=== PATIENT | female | born 1980 | race Caucasian/White ===

== ENCOUNTER 2018-10-21 10:12 | Emergency (ER) | payer OTHER, SELFPAY ==
[2018-10-21] MEDS ORDERED: IPRATROPIUM BROM 0.5MG/2.5ML ONE (11:15)
[2018-10-21] MEDS ORDERED: AZITHROMYCIN 250 MG TAB ONE (11:15)
[2018-10-21] MEDS ORDERED: predniSONE 20 MG TAB ONE (11:15)
[2018-10-21] MEDS ORDERED: LEVALBUTEROL 1.25 MG/3 ML NEB ONE (11:15)
--- NOTE | 2018-10-21 11:33 | ER ---
Nurse's Notes [facility] Name: Skye Cardenas Age: 37 yrs Sex: Female : 1980 Arrival Date: 10/21/2018 Time: 10:15 Bed 7 Private MD: Diagnosis: Dyspnea;Bronchitis, not specified as acute or chronic;Tobacco abuse counseling;Tobacco use Presentation: 10/21 10:33 Presenting complaint: Patient states: shortness of breath that began a month ago with a ss dry cough that has been getting worse. Pt reports that breathing has been worse over the past few days. Transition of care: patient was not received from another setting of care. Onset of symptoms was September 2018. Risk Assessment: Do you want to hurt yourself or someone else? Patient reports no desire to harm self or others. Initial Sepsis Screen: Does the patient meet any 2 criteria? No. Patient's initial sepsis screen is negative. Does the patient have a suspected source of infection? No. Patient's initial sepsis screen is negative. Care prior to arrival: None. 10:33 Method Of Arrival: Ambulatory ss 10:33 Acuity: MURRAY 3 ss Historical: - Allergies: 10:38 No Known Allergies; ss - Home Meds: 10:38 sertraline oral oral [Active]; Klonopin Oral [Active]; gabapentin oral oral [Active]; ss [place] Carbonate Oral [Active]; - PMHx: 10:38 Depression; Anxiety; ss - PSHx: 10:38 None; ss - Immunization history:: Adult Immunizations up to date. - Social history:: Smoking status: Patient uses tobacco products, smokes two packs cigarettes per day. - Ebola Screening: : Patient denies exposure to infectious person Patient denies travel to an Ebola-affected area in the 21 days before illness onset. Screenin:14 Abuse screen: Denies threats or abuse. Denies injuries from another. Nutritional aj1 screening: No deficits noted. Tuberculosis screening: No symptoms or risk factors identified. 12:16 Fall Risk None identified. aj1 Assessment: 11:14 General: Appears in no apparent distress. comfortable, Behavior is calm, cooperative, aj1 appropriate for age. Pain: Denies pain. Neuro: Level of Consciousness is awake, alert, obeys commands, Oriented to person, place, time, situation. Cardiovascular: Heart tones S1 S2 present Patient's skin is warm and dry. Rhythm is regular. Respiratory: Reports shortness of breath cough that is persistent Airway is patent Respiratory effort is even, unlabored, Respiratory pattern is regular, symmetrical, Breath sounds are clear bilaterally. GI: No signs and/or symptoms were reported involving the gastrointestinal system. : No signs and/or symptoms were reported regarding the genitourinary system. EENT: No signs and/or symptoms were reported regarding the EENT system. Derm: No signs and/or symptoms reported regarding the dermatologic system. Skin is pink, warm \T\ dry. normal. Musculoskeletal: No signs and/or symptoms reported regarding the musculoskeletal system. Circulation, motion, and sensation intact. 12:05 Reassessment: Patient appears in no apparent distress at this time. No changes from aj1 previously documented assessment. Patient and/or family updated on plan of care and expected duration. Pain level reassessed. Patient is alert, oriented x 3, equal unlabored respirations, skin warm/dry/pink. Vital Signs: 10:38 BP 117 / 92; Pulse 77; Resp 16; Temp 98.0(O); Pulse Ox 100% on R/A; Weight 65.77 kg; ss Height 5 ft. 6 in. (167.64 cm); Pain 4/10; 11:14 BP 114 / 85; Pulse 57; Resp 16; Pulse Ox 100% on Nebulizer Mask; aj1 12:05 BP 109 / 85; Pulse 62; Resp 18; Pulse Ox 100% on R/A; aj1 10:38 Body Mass Index 23.40 (65.77 kg, 167.64 cm) ED Course: 10:15 Patient arrived in ED. as 10:36 Pawan Garrido MD is Attending Physician. kayla 10:36 Triage completed. ss 10:38 Arm band placed on right wrist. ss 10:59 Maria De Jesus Bradlye, RN is Primary Nurse. ss 11:13 Primary Nurse role handed off by Maria De Jesus Bradley, ROYAL aj1 11:13 Genesis Thomas, ROYAL is Primary Nurse. aj1 11:14 Patient has correct armband on for positive identification. Bed in low position. Call aj1 light in reach. Side rails up X 1. 11:14 No provider procedures requiring assistance completed. aj1 11:40 X-ray completed. Portable x-ray completed in exam room. Patient tolerated procedure la2 well. 11:42 Chest Pa And Lat (2 Views) XRAY In Process Unspecified. EDMS 12:06 Patient did not have IV access during this emergency room visit. aj1 Administered Medications: 11:12 Drug: predniSONE 40 mg Route: PO; ss 12:16 Follow up: Response: No adverse reaction aj1 11:12 Drug: Xopenex 1.25 mg Route: Inhalation; ss 12:16 Follow up: Response: No adverse reaction aj1 11:12 Drug: AtroVENT Aerosol 0.5 mg Route: Inhalation; ss 12:16 Follow up: Response: No adverse reaction aj1 11:13 Drug: Zithromax 500 mg Route: PO; ss 12:16 Follow up: Response: No adverse reaction aj1 Outcome: 11:31 Discharge ordered by . kayla 12:15 Discharged to home ambulatory. aj1 12:15 Condition: good 12:15 Discharge instructions given to patient, Instructed on discharge instructions, follow up and referral plans. no drinking with medication, no driving heavy equipment, medication usage, Demonstrated understanding of instructions, follow-up care, medications, Prescriptions given X 4. 12:17 Patient left the ED. aj1 Signatures: Dispatcher [employer] EDGenesis Mccrary RN RN aj1 Pawan Garrido MD MD cha Martinez, Amelia as Smirch, Shelby, RN RN Jerod Fernandaswetha augustin
--- NOTE | 2018-10-21 11:33 | EDPHYS ---
Physician Documentation [facility] Name: Skye Cardenas Age: 37 yrs Sex: Female : 1980 Arrival Date: 10/21/2018 Time: 10:15 Bed 7 Private MD: Pawan Marshall HPI: 10/21 10:42 This 37 yrs old Female presents to ER via Ambulatory with complaints of kayla Shortness Of Breath. 10:42 The patient has shortness of breath at rest. Onset: The symptoms/episode began/occurred kayla 2 day(s) ago. Duration: The symptoms are chronic. The patient's shortness of breath has no apparent modifying factors. Associated signs and symptoms: The patient has no apparent associated signs or symptoms. Severity of symptoms: At their worst the symptoms were mild. The patient has not experienced similar symptoms in the past. Historical: - Allergies: 10:38 No Known Allergies; ss - Home Meds: 10:38 sertraline oral oral [Active]; Klonopin Oral [Active]; gabapentin oral oral [Active]; ss [place] Carbonate Oral [Active]; - PMHx: 10:38 Depression; Anxiety; ss - PSHx: 10:38 None; ss - Immunization history:: Adult Immunizations up to date. - Social history:: Smoking status: Patient uses tobacco products, smokes two packs cigarettes per day. - Ebola Screening: : Patient denies exposure to infectious person Patient denies travel to an Ebola-affected area in the 21 days before illness onset. ROS: 10:43 Constitutional: Negative for fever, chills, and weight loss, Eyes: Negative for injury, kayla pain, redness, and discharge, ENT: Negative for injury, pain, and discharge, Neck: Negative for injury, pain, and swelling, Cardiovascular: Negative for chest pain, palpitations, and edema, Abdomen/GI: Negative for abdominal pain, nausea, vomiting, diarrhea, and constipation, Back: Negative for injury and pain, : Negative for injury, bleeding, discharge, and swelling, MS/Extremity: Negative for injury and deformity, Skin: Negative for injury, rash, and discoloration, Neuro: Negative for headache, weakness, numbness, tingling, and seizure, Psych: Negative for depression, anxiety, suicide ideation, homicidal ideation, and hallucinations, Allergy/Immunology: Negative for hives, rash, and allergies, Endocrine: Negative for neck swelling, polydipsia, polyuria, polyphagia, and marked weight changes, Hematologic/Lymphatic: Negative for swollen nodes, abnormal bleeding, and unusual bruising. 10:43 Respiratory: Positive for cough, "sounds productive". Exam: 10:43 Constitutional: This is a well developed, well nourished patient who is awake, alert, kayla and in no acute distress. Head/Face: Normocephalic, atraumatic. Eyes: Pupils equal round and reactive to light, extra-ocular motions intact. Lids and lashes normal. Conjunctiva and sclera are non-icteric and not injected. Cornea within normal limits. Periorbital areas with no swelling, redness, or edema. ENT: Nares patent. No nasal discharge, no septal abnormalities noted. Tympanic membranes are normal and external auditory canals are clear. Oropharynx with no redness, swelling, or masses, exudates, or evidence of obstruction, uvula midline. Mucous membranes moist. Neck: Trachea midline, no thyromegaly or masses palpated, and no cervical lymphadenopathy. Supple, full range of motion without nuchal rigidity, or vertebral point tenderness. No Meningismus. Chest/axilla: Normal chest wall appearance and motion. Nontender with no deformity. No lesions are appreciated. Cardiovascular: Regular rate and rhythm with a normal S1 and S2. No gallops, murmurs, or rubs. Normal PMI, no JVD. No pulse deficits. Abdomen/GI: Soft, non-tender, with normal bowel sounds. No distension or tympany. No guarding or rebound. No evidence of tenderness throughout. Back: No spinal tenderness. No costovertebral tenderness. Full range of motion. Skin: Warm, dry with normal turgor. Normal color with no rashes, no lesions, and no evidence of cellulitis. MS/ Extremity: Pulses equal, no cyanosis. Neurovascular intact. Full, normal range of motion. Neuro: Awake and alert, GCS 15, oriented to person, place, time, and situation. Cranial nerves II-XII grossly intact. Motor strength 5/5 in all extremities. Sensory grossly intact. Cerebellar exam normal. Normal gait. Psych: Awake, alert, with orientation to person, place and time. Behavior, mood, and affect are within normal limits. 10:43 Respiratory: the patient does not display signs of respiratory distress, Respirations: normal, Breath sounds: rhonchi, that are mild, are scattered, Respiratory rate: 16 Vital Signs: 10:38 BP 117 / 92; Pulse 77; Resp 16; Temp 98.0(O); Pulse Ox 100% on R/A; Weight 65.77 kg; Height 5 ft. 6 in. (167.64 cm); Pain 4/10; 11:14 BP 114 / 85; Pulse 57; Resp 16; Pulse Ox 100% on Nebulizer Mask; aj1 12:05 BP 109 / 85; Pulse 62; Resp 18; Pulse Ox 100% on R/A; aj1 10:38 Body Mass Index 23.40 (65.77 kg, 167.64 cm) MDM: 10:36 Patient medically screened. [facility] 10:44 Data reviewed: vital signs, nurses notes, radiologic studies, plain films. [facility] 10/21 10:42 Order name: Chest Pa And Lat (2 Views) XRAY kayla Administered Medications: 11:12 Drug: predniSONE 40 mg Route: PO; ss 12:16 Follow up: Response: No adverse reaction aj 11:12 Drug: Xopenex 1.25 mg Route: Inhalation; ss 12:16 Follow up: Response: No adverse reaction aj 11:12 Drug: AtroVENT Aerosol 0.5 mg Route: Inhalation; ss 12:16 Follow up: Response: No adverse reaction aj 11:13 Drug: Zithromax 500 mg Route: PO; ss 12:16 Follow up: Response: No adverse reaction [facility] Disposition: 10/21/18 11:31 Discharged to Home. Impression: Dyspnea, Bronchitis, not specified as acute or chronic, Tobacco abuse counseling, Tobacco use. - Condition is Stable. - Discharge Instructions: Acute Bronchitis, Adult, How to Use an Inhaler, Steps to Quit Smoking, Smoking Hazards, Upper Respiratory Infection, Adult, Steps to Quit Smoking, [id number]. - Prescriptions for Medrol (David) 4 mg Oral Tablets, Dose Pack - take 1 tablet by ORAL route as directed - follow package instructions; 1 packet. Albuterol Sulfate 90 mcg/actuation - inhale 1-2 puff by INHALATION route every 4-6 hours; 1 Inhaler. Guaifenesin AC 10- 100 mg/5 mL Oral Liquid - take 10 milliliter by ORAL route every 4 hours As needed; 240 milliliter. Zithromax 500 mg Oral Tablet - take 1 tablet by ORAL route once daily for 5 days; 5 tablet. - Medication Reconciliation Form, Thank You Letter, Antibiotic Education, Prescription Opioid Use form. - Follow up: Private Physician; When: 2 - 3 days; Reason: Recheck today's complaints, Continuance of care, Re-evaluation by your physician. - Problem is new. - Symptoms have improved. Signatures: Dispatcher [employer] EDGenesis Mccrary RN RN aj1 Pawan Garrido MD MD cha Smirch, Shelby, RN RN ss Corrections: (The following items were deleted from the chart) 12:17 11:31 10/21/2018 11:31 Discharged to Home. Impression: Dyspnea; Bronchitis, not aj1 specified as acute or chronic; Tobacco abuse counseling; Tobacco use. Condition is Stable. Discharge Instructions: Acute Bronchitis, Adult, How to Use an Inhaler, Steps to Quit Smoking, Smoking Hazards, Upper Respiratory Infection, Adult, Steps to Quit Smoking, [id number]. Prescriptions for Medrol (David) 4 mg Oral Tablets, Dose Pack - take 1 tablet by ORAL route as directed - follow package instructions; 1 packet, Albuterol Sulfate 90 mcg/actuation - inhale 1-2 puff by INHALATION route every 4-6 hours; 1 Inhaler, Guaifenesin AC 10-100 mg/5 mL Oral Liquid - take 10 milliliter by ORAL route every 4 hours As needed; 240 milliliter, Zithromax 500 mg Oral Tablet - take 1 tablet by ORAL route once daily for 5 days; 5 tablet. and Forms are Medication Reconciliation Form, Thank You Letter, Antibiotic Education, Prescription Opioid Use. Follow up: Private Physician; When: 2 - 3 days; Reason: Recheck today's complaints, Continuance of care, Re-evaluation by your physician. Problem is new. Symptoms have improved. kayla
--- NOTE | 2018-10-21 12:02 | RAD REPORT ---
EXAM DESCRIPTION: RAD - Chest Pa And Lat (2 Views) - 10/21/2018 11:44 am CLINICAL HISTORY: COUGH Chest pain. COMPARISON: No comparisons FINDINGS: The lungs are clear. The heart is normal in size. No displaced fractures. IMPRESSION: No acute or concerning finding suspected.
== END 2018-10-21 12:17 | disposition home or self-care (01) ==
LOC: ER 10:12
DX: J40 Bronchitis, not specified as acute or chronic (principal); F41.9 Anxiety disorder, unspecified; F32.9 Major depressive disorder, single episode, unspecified; Z72.0 Tobacco use; Z71.6 Tobacco abuse counseling
CPT/HCPCS: 71046; 99284; J7512